=== PATIENT | male | born 1980 | race Caucasian/White ===

== ENCOUNTER 2017-10-17 15:55 | Emergency (ER) | payer BC ==
[~2017-10-17] VITALS: Ht 180.3 cm; Wt 97.5 kg
[2017-10-17 15:55] VITALS: BP 113/74
--- NOTE | 2017-10-17 16:56 | RAD ---
Indication:fell yesterday, right shoulder pain, pt shielded TECHNIQUE: 3 views of the right shoulder COMPARISON: None FINDINGS: No acute fracture or dislocation. The acromioclavicular and glenohumeral joints are intact. Visualized right lung is clear. Soft tissues within normal limits. IMPRESSION: No acute osseous findings. Electronically signed by: Jarad Parson DO (10/17/2017 4:53 PM) [facility]
[2017-10-17] MEDS ORDERED: KETOROLAC 60 MG/2 ML VIAL. IM ONE (17:00)
[2017-10-17] MEDS ORDERED: IBUP800T19 PO (17:41)
[2017-10-17] MEDS ORDERED: HYDR-971 PO (17:41)
--- NOTE | 2017-10-17 17:41 | PHYS DOC ---
Adult General Chief Complaint Chief Complaint: SHOULDER INJURY HPI HPI 37-year-old right-handed female patient states he had an accidental fall from about 6 stairs last night and complaining of pain in right shoulder that getting worse with movement of his shoulder. Patient states he had injury to his head for loss of consciousness. Patient denies focal neuro deficit, nausea and vomiting, blurred vision. Review of Systems Review of Systems Constitutional: Denies fever or chills [] Eyes: Denies change in visual acuity, redness, or eye pain [] HENT: Denies nasal congestion or sore throat [] Respiratory: Denies cough or shortness of breath [] Cardiovascular: No additional information not addressed in HPI [] GI: Denies abdominal pain, nausea, vomiting, bloody stools or diarrhea [] : Denies dysuria or hematuria [] Musculoskeletal: Denies back pain, reports joint pain [] Integument: Denies rash or skin lesions [] Neurologic: Denies headache, focal weakness or sensory changes [] Endocrine: Denies polyuria or polydipsia [] All other systems were reviewed and found to be within normal limits, except as documented in this note. Current Medications Current Medications Current Medications Medications (Trade) Dose Ordered Sig/Radha Start Time Stop Time Status Last Admin Dose Admin Ketorolac Tromethamine (Toradol Im) 60 mg 1X ONCE 10/17/17 17:00 10/17/17 17:01 UNV Physical Exam Physical Exam Constitutional: Well developed, well nourished, moderate distress, non-toxic appearance. [] HENT: Normocephalic, right forehead contusion, bilateral external ears normal, oropharynx moist, no oral exudates, nose normal. [] Eyes: PERRLA, EOMI, conjunctiva normal, no discharge. [] Neck: Normal range of motion, no tenderness, supple, no stridor. [] Cardiovascular:Heart rate regular rhythm, no murmur [] Lungs & Thorax: Bilateral breath sounds clear to auscultation [] Abdomen: Bowel sounds normal, soft, no tenderness, no masses, no pulsatile masses. [] Skin: Warm, dry, no erythema, no rash. [] Back: No tenderness, no CVA tenderness. [] Extremities: Right shoulder with contusion without deformity, tenderness or limited range of motion of right shoulder without neurovascular deficit, , no cyanosis, no edema. [] Neurologic: Alert and oriented X 3, normal motor function, normal sensory function, no focal deficits noted. [] Psychologic: Affect normal, judgement normal, mood normal. [] EKG EKG [[address] [id number] IMAGING REPORT Signed PATIENT: LOREN RIOS ACCOUNT: [id number] : 1980 LOCATION: ER AGE: 37 SEX: M EXAM STATUS: PRE ER ORD. PHYSICIAN: MIRLANDE GAUTHIER MD REASON: injury PROCEDURE: SHOULDER 2+V RIGHT Indication:fell yesterday, right shoulder pain, pt shielded TECHNIQUE: 3 views of the right shoulder COMPARISON: None FINDINGS: No acute fracture or dislocation. The acromioclavicular and glenohumeral joints are intact. Visualized right lung is clear. Soft tissues within normal limits. IMPRESSION: No acute osseous findings. Electronically signed by: Jarad Parson DO (10/17/2017 4:53 PM) [facility] DICTATED AND SIGNED BY: JARAD PARSON DO DATE: 10/17/171650 CC: MIRLANDE GAUTHIER MD; LEILA WILL ~ ] Radiology/Procedures Radiology/Procedures [] Course & Med Decision Making Course & Med Decision Making Pertinent Imaging studies reviewed. (See chart for details) Evaluation of patient in ER showed 37-year-old male patient with a fall and injury to right shoulder. Patient had contusion of right shoulder and limited range of motion. Shoulder immobilizer was applied and patient treated with Toradol. Patient instructed to follow up with [facility] [place] [facility] physician and prescription for pain medication was given. [] Dragon Disclaimer Dragon Disclaimer This electronic medical record was generated, in whole or in part, using a voice recognition dictation system. Departure Departure: Impression: Primary Impression: Sprain of right shoulder Additional Impressions: Facial contusion Fall down stairs Disposition: 01 HOME, SELF-CARE (ERASED) Condition: IMPROVED Referrals: LEILA WILL (PCP) Patient Instructions: Contusion, Shoulder Sprain Additional Instructions: Apply ice on right shoulder Follow-up with [facility] orth[facility] physician Dr. Lackey call [phone] to make an appointment Return to ER if not getting better Scripts Hydrocodone Bit/Acetaminophen (NORCO 5-325 TABLET) 1 Each Tablet 1 TAB PO PRN Q6HRS PRN for PAIN, #20 TAB 0 Refills Prov: MIRLANDE GAUTHIER MD 10/17/17 Ibuprofen (IBUPROFEN) 800 Mg Tablet 1 TAB PO TID, #30 TAB Prov: MIRLANDE GAUTHIER MD 10/17/17 Problem Qualifiers MIRLANDE GAUTHIER MD Oct 17, 2017 17:41
== END 2017-10-17 18:06 | disposition home or self-care (01) ==
LOC: ER 15:55
DX: S43.51XA Sprain of right acromioclavicular joint, initial encounter (principal); S00.83XA Contusion of other part of head, initial encounter; W10.8XXA Fall (on) (from) other stairs and steps, initial encounter; Y93.89 Activity, other specified; Y92.89 Other specified places as the place of occurrence of the external cause; Y99.8 Other external cause status
CPT/HCPCS: 29105; 73030; 96372; 99284; J1885